=== PATIENT | male | born 1995 | race African-American/Black ===

== ENCOUNTER 2020-01-10 03:17 | Emergency (ER) | payer MEDICAID, OTHER ==
[2020-01-10] MEDS ORDERED: ACETAMINOPHEN 500 MG TAB ONE (05:27)
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
[2020-01-10 07:19] VITALS: TEMP 97.7
[2020-01-10 07:24] VITALS: BP 127/81; O2SAT 99
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
== END 2020-01-10 06:49 | disposition home or self-care (01) ==
LOC: ER 03:17
PROC: 2W3CX1Z Immobilization of Right Lower Arm using Splint (ICD-10-PCS; principal; 2020-01-10)
DX: S62.316A Displaced fracture of base of fifth metacarpal bone, right hand, initial encounter for closed fracture (principal); S00.81XA Abrasion of other part of head, initial encounter; V49.40XA Driver injured in collision with unspecified motor vehicles in traffic accident, initial encounter; Z88.0 Allergy status to penicillin
CPT/HCPCS: 70450; 70486; 72125; 76377; 99284; G0390